=== PATIENT | male | born 1955 | race Caucasian/White ===

== ENCOUNTER 2016-10-10 15:00 | Inpatient (IN) | payer OTHER ==
--- NOTE | ~2016-10-10 | HP ---
Unit #: [id number] #: [id number] Patient: NITZA BARBOSA [id number] [address] [place], [place] [address] [id number] I MR#: [id number] NAME: NITZA BARBOSA ROOM: 01003 Age: 61 Sex: M Admission Date: 10/10/2016 : 1955 Attending Physician: Dyana Ayala M.D. Primary Care Physician: No Primary Care Physician HISTORY AND PHYSICAL CHIEF COMPLAINT Diverticulitis failing outpatient treatment. HISTORY This pleasant 61-year-old male with diverticular disease, CAD, BPH, is admitted for diverticulitis. The patient developed some diarrhea, left lower quadrant pain and was seen in the emergency department in [place], [place] where he resides. He was placed on Flagyl and Cipro 11 days ago, states that he initially did well until four days ago when he began to experience nonbloody diarrhea with increasing crampy discomfort. More recently he developed a left lower quadrant suprapubic pain but denied fevers, sweats, chills. He completed his antibiotics yesterday. He therefore presented to this emergency department this afternoon where he is afebrile, but has a white blood count of 17.5. CT scan shows acute diverticulitis in the mid to distal sigmoid colon. In the ER the patient was treated with morphine, Zofran, IV fluids, is receiving Zosyn and Flagyl. He has a known history of diverticular disease, and states that his last colonoscopy was three years ago and did not show anything significant. PAST MEDICAL HISTORY 1. CAD with DC 05/2006 requiring stent placement. Patient denies cardiac symptoms after his stent. 2. BPH with recent UroLift. 3. GERD. 4. Hyperlipidemia. 5. History of diverticular disease. 6. Chronic pain, status post back and neck surgeries. 7. Lipoma removed from the head and neck 05/2016. 8. Three c-spine surgeries. 9. Two lumbar spine surgeries. 10. Hiatal hernia repair and then revision of ventral hernia. 11. Colonoscopy reportedly okay three years ago. ALLERGIES Hydrocodone, oxycodone, fentanyl, Dilaudid. HOME MEDICATIONS 1. Proscar 5 mg daily. 2. Flomax 0.8 mg daily. 3. Lipitor 80 mg daily. 4. P.r.n. Bentyl. Unit #: [id number] #: [id number] Patient: NITZA BARBOSA 5. The patient just finished Flagyl and Cipro yesterday. 6. Elavil 25 mg q.h.s. 7. Lyrica 200 mg q.h.s. 8. Rizatriptan 10 mg p.r.n. migraines. 9. Baclofen 10 mg b.i.d. with 290 mg q.h.s. 10. Omeprazole 40 mg daily. FAMILY HISTORY Negative for colon disease. SOCIAL HISTORY The patient lives in [place], [place] with his . He is visiting here in [place]. He is a lifelong nonsmoker, drinks occasional alcohol. REVIEW OF SYSTEMS Notable for suprapubic and left lower quadrant tenderness, diarrhea, diverticular disease, diverticulitis, CAD, BPH, GERD, hyperlipidemia, migraine headaches. Abovementioned surgeries. all other systems were reviewed and are otherwise negative. PHYSICAL EXAMINATION GENERAL: Pleasant 61-year-old male who currently is in no acute distress. VITAL SIGNS: Temperature 97.5. Pulse 91. Respirations 16. Blood pressure 179/104, will recheck this blood pressure. O2 saturation is 98% on room air. HEENT EXAMINATION: Eyes PERRLA, extraocular muscles are intact. Pharynx is benign. NECK: Supple, without adenopathy or thyromegaly. CHEST: Clear. CARDIAC: Normal S1 and S2, without S3, S4 or murmur. ABDOMEN: Bowel sounds are present. Patient is most tender in the suprapubic and left lower quadrants. Without rebound or guarding. No hepatosplenomegaly or masses. EXTREMITIES: Without cyanosis, clubbing or edema. Pedal pulses are present. NEUROLOGIC EXAM: Patient is awake, alert, oriented. Cranial nerves are intact. Equal strength throughout. DIAGNOSTIC STUDIES LABORATORY: Hematocrit is 48.8, white blood count is 17.5, normal platelet count. SMA-12: Glucose is 112. Alkaline phosphatase 129. Normal amylase and lipase. Urinalysis 1+ leukocyte esterase without significant white or red cells. IMAGING: CT scan: Acute diverticulitis in the mid to distal sigmoid colon. No abscess or perforation. ASSESSMENT 1. Ongoing diverticulitis despite Flagyl and Cipro which completed yesterday. Last colonoscopy was three years ago and was reportedly okay. 2. Coronary artery disease, status post percutaneous coronary intervention and stent. 3. Elevated blood pressure, will recheck. 4. Benign prostatic hypertrophy. 5. Gastroesophageal reflux disease. 6. Hyperlipidemia. 7. Chronic pain, status post multiple cervical spine and lumbar spine Unit #: [id number] #: [id number] Patient: NITZA BARBOSA. PLANS 1. IV fluids and supportive treatment. 2. Zosyn and Flagyl for now. 3. Check stool for C. diff. 4. DVT prophylaxis. 5. Monitor blood pressure and treat if blood pressure remains elevated. 6. If stool is negative for C. diff will discontinue the Flagyl. Dictated by Dyana Ayala M.D. AML/shreya TD: 10/10/2016 22:05 JOB #: [id number] HISTORY AND PHYSICAL Page 1 of 1 X Dyana Ayala MD X HISTORY AND PHYSICAL
--- NOTE | ~2016-10-10 | DS ---
Unit #: [id number] #: [id number] Patient: NITZA BARBOSA [id number] [address] [address] [id number] I MR#: [id number] NAME: NITZA BARBOSA ROOM: 236 Age: 61 Sex: M Admission Date: 10/10/2016 : 1955 Discharge Date: 10/12/2016 Attending Physician: Caitlyn Banerjee M.D. Primary Care Physician: Primary Care Physician No DISCHARGE SUMMARY Primary care provider is in [place]. PRINCIPAL DIAGNOSES 1. Sepsis secondary to sigmoid diverticulitis. 2. Polycythemia secondary to dehydration, now resolved. 3. Chronic pain syndrome, maintained on narcotics. 4. Coronary artery disease. 5. Benign prostatic hypertrophy. 6. Hyperlipidemia. 7. Gastroesophageal reflux disease. CONSULTANTS None. PROCEDURES CT scan of the abdomen and pelvis with contrast on October 10, 2016, with acute diverticulitis in the fcs-ab-trmjub sigmoid colon, no evidence of abscess or perforation. CLINICAL HISTORY AND HOSPITAL COURSE Mr. Barbosa is a very nice 61-year-old male, who presents to the emergency department with left lower quadrant abdominal pain. The patient recently had been diagnosed with diverticulitis which was treated as an outpatient but, unfortunately, again, he developed recurrent abdominal pain and some diarrhea. In the emergency department, CT scan confirmed diverticulitis. This was in association with an elevated white blood cell count of 17.5. The patient was subsequently admitted. The patient was started on empiric Flagyl and Zosyn and had a significant rapid drop in his leukocytosis and improvement in his symptoms. He remained afebrile throughout hospitalization. His diet was advanced and on day of discharge, he is tolerating a diet without any pain and white blood cell count is normalized. He will be discharged home on antibiotics as noted. I will note that I did discuss maintaining regular bowel movements with the patient given this may be a contributing factor for him given his chronic narcotic therapy. Again, he will try medications as outlined below. DISCHARGE CONDITION Stable. DISCHARGE STATUS Unit #: [id number] #: [id number] Patient: NITZA BARBOSA Discharged to home. DISCHARGE MEDICATIONS 1. Flomax 0.8 mg daily 2. Lyrica 200 mg p.o. daily 3. Amitriptyline 25 mg at bedtime 4. Colace 100 mg p.o. b.i.d. 5. Lipitor 80 mg at bedtime 6. Flagyl 500 mg p.o. t.i.d. for fourteen days 7. Proscar 5 mg daily 8. MSIR 15 mg p.o. t.i.d. p.r.n. for pain 9. Prilosec 40 mg daily 10. Baclofen 10 mg b.i.d. with 20 mg at bedtime 11. Omnicef 300 mg p.o. b.i.d. for fourteen days DISCHARGE INSTRUCTIONS The patient was instructed to follow a bland soft consistency diet over the next oxr-lg-mfjvn days and then increase as tolerated back to heart healthy. He can increase activity as tolerated. FOLLOWUP The patient will follow up with his primary care provider upon return to his residence in [place]. Dictated by... Cass Baxter/scott TD: 10/14/2016 14:36 JOB #: [id number] DISCHARGE SUMMARY Page 1 of 1 X Caitlyn Banerjee MD X DISCHARGE SUMMARY
--- NOTE | ~2016-10-10 | CT2 ---
[facility] A Service of [facility] RADIOLOGY TEXT RESULTS PATIENT: NITZA BARBOSA LOCATION: [address] : [birth year] UNIT #: [id number] AGE: [address]: Caitlyn Banerjee MD SEX: M ORDER DR: [id number] [facility]. [place], [place] [address] [id number] MR#: [id number] Acc #: [id number] NAME: NITZA BARBOSA : 1955 SEX: M STUDY DATE/TIME: 10/10/2016 18:52 UNIT: [facility] ROOM: STUDY DESCRIPTION: CT Abd and Pelv W Cont Attending Physician: David Marsh D.O. Ordering Physician: Zeeshan White M.D. Primary Care Physician: No Primary Care Physician MEDICAL IMAGING REPORT This report is preliminary unless electronic signature is present EXAM CT abdomen and pelvis with contrast INDICATIONS Generalized abdominal pain nausea, diarrhea since 10/09/2016 PROCEDURE Contrast-enhanced CT of the abdomen and pelvis 100 mL of Isovue-370. This CT exam was performed with one or more of the following radiation dose reduction techniques: automatic control, adjustment of mA and/or kV according to patient size, and iterative reconstruction. COMPARISON None FINDINGS ABDOMEN WITH CONTRAST: Included lung bases clear. There are a few small cysts scattered in the liver. The spleen kidneys adrenal glands pancreas gallbladder unremarkable. Small to moderate sized hiatal hernia. The bowel loops are nondilated. Sigmoid diverticula. Thickening and inflammatory change in the kno-pn-xkfvzt sigmoid colon measuring up to 6 cm in length. No abscess. Appendix is normal. PELVIS WITH CONTRAST: No pelvic mass or fluid. No aggressive appearing bone lesion. IMPRESSION Acute diverticulitis in the iag-qm-nbzmci sigmoid colon. No evidence for abscess or perforation. Dictated by... [facility] A Service [facility] RADIOLOGY TEXT RESULTS PATIENT: NITZA BARBOSA LOCATION: [address] : [birth year] UNIT #: [id number] AGE: [address]: Caitlyn Banerjee MD SEX: M ORDER DR: David Reynolds M.D. THIS IS AN ELECTRONICALLY VERIFIED REPORT David Reynolds M.D. at 10/11/2016 10:39 AM ANIBAL/julieta TD: 10/10/2016 20:23 JOB #: [id number] MEDICAL IMAGING REPORT Page 1 of 1 COPY
[2016-10-10 15:39] LABS: URINE SOURCE CLEAN CATCH
[2016-10-10 15:44] LABS: URINE APPEARANCE CLEAR; URINE BILIRUBIN NEG (NEG); URINE BLOOD NEG (NEG); URINE COLOR YELLOW; URINE GLUCOSE NEG (NEG); URINE KETONE TRACE (NEG); URINE LEUKOCYTE ESTERASE 1+ (NEG); URINE NITRATE NEG (NEG); URINE PROTEIN NEG (NEG)
[2016-10-10 15:47] LABS: URBCS1 AUWI 0-2 /[HPF] (0-2); URINE BACTERIA AUWI NEG (NEGATIVE); URINE SQUAMOUS EPITHELIAL CELL NONE SEEN /[HPF]
[2016-10-10 15:52] LABS: CULTURE INDICATED? NO
[2016-10-10 15:53] LABS: BASOPHIL% 0.3 % (0-2.5); EOSINOPHIL# 0.1 X10e3 (0-0.7); EOSINOPHIL% 0.7 % (0.0-7.0); HEMATOCRIT 48.8 % (38.0-50.0); HEMOGLOBIN 16.2 gm/dL (13.0-16.0); LYMPHOCYTE# 1.3 X10e3 (1.0-3.5); LYMPHOCYTE% 7.7 % (17.0-45.0); MEAN CELL VOLUME 86.6 FL (83-96); MEAN CORPUSCULAR HEMOGLOBIN 28.7 PG (28-34); MEAN CORPUSCULAR HGB CONC 33.2 g/dL (30-36); MEAN PLATELET VOLUME 8.3 FL (6.5-11.5); MONOCYTE# 0.9 X10e3 (0-1.0); MONOCYTE% 5.2 % (3.0-12.0); NEUTROPHIL# 15.1 X10e3 (1.5-7.1); NEUTROPHIL% 86.1 % (40-75); PLATELET COUNT 276 X10e3 (140-420); RED BLOOD COUNT 5.63 X10e (3.90-5.60); RED CELL DISTRIBUTION WIDTH 14.5 % (11.0-15.5); WHITE BLOOD COUNT 17.5 X10e3 (4.0-10.5)
[2016-10-10 15:59] LABS: DIFF IND YES
[2016-10-10 16:09] LABS: ALBUMIN SERUM 4.7 g/dL (3.5-5.0); BILIRUBIN, DIRECT 0.2 mg/dL (0.0-0.2); BILIRUBIN,INDIRECT 0.6 mg/dL (0.0-0.9); BILIRUBIN,TOTAL 0.8 mg/dL (0.2-2.0); CALCIUM SERUM 9.3 mg/dL (8.4-10.2); POTASSIUM 4.5 mmol/L (3.5-5.1); PROTEIN TOTAL SERUM 7.9 g/dL (6.0-8.3)
[2016-10-10 16:18] LABS: PLATELET ESTIMATE NORMAL (NORMAL); RBC NORMAL YES
[2016-10-10] MEDS ORDERED: MSIR15 MG PO (23:49)
[2016-10-10] MEDS ORDERED: PROSCAR5 MG PO (23:50)
[2016-10-10] MEDS ORDERED: LYRICA PO (23:51)
[2016-10-10] MEDS ORDERED: LIPITOR20 MG PO (23:51)
[2016-10-10] MEDS ORDERED: FLOMAX0.4 M1 PO (23:51)
[2016-10-10] MEDS ORDERED: BACLOFEN10 MG PO (23:52)
[2016-10-10] MEDS ORDERED: BACLOFEN20 M1 PO (23:52)
[2016-10-10] MEDS ORDERED: AMITRYPTYLINE PO (23:52)
[2016-10-10] MEDS ORDERED: PRILOSEC PO (23:52)
[2016-10-11 06:19] LABS: BASOPHIL# 0.1 X10e3 (0-0.3); BASOPHIL% 0.6 % (0-2.5); EOSINOPHIL# 0.2 X10e3 (0-0.7); EOSINOPHIL% 2.1 % (0.0-7.0); HEMATOCRIT 42.3 % (38.0-50.0); LYMPHOCYTE# 1.9 X10e3 (1.0-3.5); MEAN CELL VOLUME 86.8 FL (83-96); MEAN CORPUSCULAR HEMOGLOBIN 28.8 PG (28-34); MEAN CORPUSCULAR HGB CONC 33.1 g/dL (30-36); MEAN PLATELET VOLUME 8.7 FL (6.5-11.5); MONOCYTE# 0.7 X10e3 (0-1.0); MONOCYTE% 6.5 % (3.0-12.0); NEUTROPHIL# 7.7 X10e3 (1.5-7.1); NEUTROPHIL% 72.8 % (40-75); PLATELET COUNT 229 X10e3 (140-420); RED BLOOD COUNT 4.88 X10e (3.90-5.60); RED CELL DISTRIBUTION WIDTH 14.3 % (11.0-15.5); WHITE BLOOD COUNT 10.6 X10e3 (4.0-10.5)
[2016-10-11 06:26] LABS: DIFF IND NO
[2016-10-11 07:11] LABS: BUN/CREATININE RATIO 16.25; CALCIUM SERUM 8.5 mg/dL (8.4-10.2); CREATININE SERUM 0.8 mg/dL (0.6-1.4); GLOM FILT RATE Estimated 97.8 mL/min (>60); POTASSIUM 4.2 mmol/L (3.5-5.1)
[2016-10-12 05:55] LABS: HEMATOCRIT 42.7 % (38.0-50.0); HEMOGLOBIN 14.2 gm/dL (13.0-16.0); MEAN CORPUSCULAR HEMOGLOBIN 28.9 PG (28-34); MEAN CORPUSCULAR HGB CONC 33.2 g/dL (30-36); MEAN PLATELET VOLUME 8.3 FL (6.5-11.5); RED BLOOD COUNT 4.91 X10e (3.90-5.60); RED CELL DISTRIBUTION WIDTH 14.3 % (11.0-15.5)
[2016-10-12 07:28] LABS: BUN/CREATININE RATIO 11.25; CALCIUM SERUM 8.7 mg/dL (8.4-10.2); CREATININE SERUM 0.8 mg/dL (0.6-1.4); GLOM FILT RATE Estimated 97.8 mL/min (>60); POTASSIUM 4.5 mmol/L (3.5-5.1)
[2016-10-12] MEDS ORDERED: DOCUSATE SODIU100 MG PO (11:41)
[2016-10-12] MEDS ORDERED: FLAGYL250 M1 PO (11:42)
[2016-10-12] MEDS ORDERED: OMNICEF300 MG PO (11:43)
== END 2016-10-12 13:12 | disposition home or self-care (01) | DRG 872 ==
LOC: CED 15:00 → CEDOF 21:21 → C2A 21:21
PROVIDERS: Internal Medicine
DX: A41.9 Sepsis, unspecified organism (principal); K57.92 Diverticulitis of intestine, part unspecified, without perforation or abscess without bleeding; D75.1 Secondary polycythemia; E78.5 Hyperlipidemia, unspecified; I25.10 Atherosclerotic heart disease of native coronary artery without angina pectoris; N40.0 Benign prostatic hyperplasia without lower urinary tract symptoms; K21.9 Gastro-esophageal reflux disease without esophagitis; Z95.5 Presence of coronary angioplasty implant and graft; G89.4 Chronic pain syndrome; E86.0 Dehydration
CPT/HCPCS: 36415; 74177; 80048; 80076; 81003; 82150; 83690; 85025; 85027; 96374; 96375; 99285; J1650; J2270; J2405; J2543; Q9967